=== PATIENT | female | born 1995 | race Caucasian/White ===

== ENCOUNTER → 2019-10-16 | Outpatient (CLI) | payer BC ==
--- NOTE | 2019-10-21 11:58 | EEG ---
DATE OF SERVICE: 10/16/2019 ELECTROENCEPHALOGRAM NUMBER: [id number]. OBJECTIVE: The patient is a 23-year-old female with new seizure related to hypoglycemia. DESCRIPTION: This is a digital study. Electrodes are placed according to the international 10-20 system. Bipolar and referential montages are available. Activation procedures typically include hyperventilation and intermittent photic stimulation. INTERPRETATION: The waking background consists of 9-10 Hz, 20-50 microvolt activity, symmetrically distributed over parietooccipital regions and reactive to eye opening. Hyperventilation and intermittent photic stimulation are noncontributory. Stage 1 sleep is achieved with normal electroencephalogram patterns. IMPRESSION: This electroencephalogram with the patient awake and asleep is within normal limits. There is no focal, paroxysmal, or epileptiform activity. Thank you for letting us help with the patient's care. JAVON GAXIOLA MD DR: ROBBY/antolin JOB#: [id number] / [id number] EDVIN Medina
== END | disposition home or self-care (01) ==
LOC: RT 09:55
PROVIDERS: ATTEND Psychiatry & Neurology Neurology with Special Qualifications in Child Neurology
DX: R56.9 Unspecified convulsions (principal); E11.649 Type 2 diabetes mellitus with hypoglycemia without coma
CPT/HCPCS: 95816

== ENCOUNTER → 2019-10-20 | Outpatient (CLI) | payer BC ==
--- NOTE | 2019-10-20 09:35 | KCIC ---
EXAM: Brain MRI without contrast. HISTORY: Seizure or hypoglycemia. TECHNIQUE: Multiplanar, multisequence magnetic resonance imaging of the brain was performed without contrast. COMPARISON: 09/12/2019. FINDINGS: There is no restricted diffusion to suggest acute or subacute infarction. There is no susceptibility effect to suggest hemorrhage. There is no mass effect or midline shift. There is no hydrocephalus. No suspicious white matter lesion is seen. There is no heterotopia or malformation of cortical development. The hippocampi demonstrate symmetric size and signal. The orbits, paranasal sinuses mastoid air cells are unremarkable. There are normal flow voids within the cerebral vessels. No calvarial lesion is seen. IMPRESSION: No acute intracranial finding or evidence of an epileptogenic lesion. Electronically signed by: Anupama Lam MD (10/20/2019 9:32 AM) [facility]
== END | disposition home or self-care (01) ==
LOC: KCIC MRI 07:53 → EDUNIT# 08:00
PROVIDERS: ATTEND Psychiatry & Neurology Neurology with Special Qualifications in Child Neurology
DX: E11.649 Type 2 diabetes mellitus with hypoglycemia without coma (principal); R56.9 Unspecified convulsions
CPT/HCPCS: 70551